=== PATIENT | male | born 1990 | race Hispanic/Latino ===

== ENCOUNTER 2016-10-30 08:42 | Day surgery (SDC) | payer MEDICAID ==
[2016-10-24 12:20] VITALS: BMI 24.8
[2016-10-30] MEDS ORDERED: Lactated Ringer's 1,000 ML IV ONE ×3 (10:22→13:00)
[2016-10-30] MEDS ORDERED: ceFAZolin IV 2 gm in Dextrose 1 GM/50 ML BAG IVPB ONE (11:12)
[2016-10-30] MEDS ORDERED: Midazolam 2 MG/2 ML VIAL ONE (11:12)
[2016-10-30] MEDS ORDERED: Propofol 10 mg/ml Inj (20 ML) ONE (11:14)
[2016-10-30] MEDS ORDERED: Oxycodone/Acetaminophen 5/325 mg Tab PO PRN (12:15)
[2016-10-30] MEDS: HYDROmorphone 0.5 mg/0.5 ml ISec IVP PRN ×4 (12:31→13:10)
[2016-10-30 13:48] VITALS: RESP 15; TEMP 98.3; O2SAT 98
[2016-10-30 16:46] VITALS: BP 122/79; PULSE 68
--- NOTE | 2016-10-30 17:20 | OP ---
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 PROCEDURES PERFORMED: Wide and deep excision of vascular tumor with adjacent tissue transfer closure and excision of varicose veins of the left lower extremity. SURGEON: David Trevino MD ANESTHESIA: General. ESTIMATED BLOOD LOSS: 30 mL. POSTOPERATIVE CONDITION: Stable. INDICATIONS FOR SURGERY: This is a 26-year-old male who was bothered by varicose veins in his legs w hich have gotten worse, which are associated with a hemangioma, and he now will undergo wide and deep excision of the hemangioma and excision of varicose veins. PROCEDURE: The patient taken to the operating room. General anesthesia administered and the left le g was prepped and draped. An elliptical incision was made surrounding the mass. It was dissected in to the fascial layer and removed. Bleeding was controlled using the Bovie. A larger blood vessel wa s repaired and the wound was irrigated with saline and generous tissue flaps were raised. A greater than 30 square cm adjacent tissue transfer closure was performed using multiple layers of Monocryl, s ubcuticular Monocryl, and glue. The remaining varicose veins were excised via stab phlebectomy. The incisions were closed with simple subcuticular Monocryl incision and glue. The wounds were dressed sterilely. The leg was wrapped with Maribel and an Rafi. The patient tolerated procedure well. Return ed to recovery room in stable condition. David Trevino MD cc: [id number] TT: 10/30/2016 17:20:23 nj
== END 2016-10-30 16:30 | disposition home or self-care (01) ==
LOC: C.SDS 08:42
PROVIDERS: ATTEND Surgery
DX: I83.892 Varicose veins of left lower extremity with other complications (principal); D18.01 Hemangioma of skin and subcutaneous tissue
CPT/HCPCS: 14301; 37799; 88305; 97116; 97161; G8978; G8979; G8980; J0690; J1170; J2250; J2704; J3010; J7120